=== PATIENT | female | born 1975 | race Caucasian/White ===

== ENCOUNTER → 2017-12-27 10:32 | Outpatient (CLI) | payer OTHER | END | disposition home or self-care (01) | LOC: D.CT 10:32 | DX: R51 Headache (principal) ==

== ENCOUNTER → 2018-01-17 14:56 | Outpatient (CLI) | payer OTHER ==
[2018-01-20 14:20] LABS: EHRLICHIA CHAFF IGG Negative (Neg:<1:64); EHRLICHIA CHAFF IGM Negative (Neg:<1:20); HGE IGG TITER Negative (Neg:<1:64); HGE IGM TITER Negative (Neg:<1:20)
[2018-01-21 16:13] LABS: RMSF IGM 0.55 index (0.00-0.89)
[2018-01-22 11:17] LABS: F. TULARENSIS - IGG Negative (()); F. TULARENSIS - IGM Negative (())
== END | disposition home or self-care (01) ==
LOC: D.LABREF 14:56
PROVIDERS: Student in an Organized Health Care Education/Training Program
DX: A77.0 Spotted fever due to Rickettsia rickettsii (principal)

== ENCOUNTER → 2018-04-21 06:39 | Outpatient (CLI) | payer OTHER | END | disposition home or self-care (01) | LOC: D.US 04-14 07:00 | DX: R10.13 Epigastric pain (principal) ==

== ENCOUNTER → 2018-12-31 14:44 | Outpatient (CLI) | payer BC | END | disposition home or self-care (01) | LOC: D.HCCARDIO 14:30 | PROVIDERS: ATTEND Internal Medicine Cardiovascular Disease | DX: R07.9 Chest pain, unspecified (principal) ==

== ENCOUNTER → 2019-09-03 12:50 | Outpatient (CLI) | payer BC | END | disposition home or self-care (01) | LOC: D.HCCECHO 12:50 | PROVIDERS: ATTEND Internal Medicine Cardiovascular Disease | DX: R00.2 Palpitations (principal) ==